=== PATIENT | male | born 1990 ===

== ENCOUNTER 2024-03-02 17:44 | Inpatient (IN) | payer MEDICARE, MEDICAID ==
[2024-03-02] MEDS ORDERED: ACETAMINOPHEN TAB 325 MG TAB PO PRN (19:37)
[2024-03-02] MEDS ORDERED: MAGNESIUM HYDROXIDE 2,400 MG/30 ML CUP PO PRN (19:37)
[2024-03-02] MEDS ORDERED: OLANZapine 10 MG VIAL IM PRN (19:39)
[2024-03-03] MEDS: MELATONIN 3 MG TABLET PO SCH (02:52)
--- NOTE | 2024-03-03 04:58 | P.CONS ---
History of Present Illness - Reason for Consult Consult date: 03/03/24 - History of Present Illness The patient is a 34-year-old male with a PMH of anxiety who was transferred from [facility] where the patient had presented for suicidal ideation and anxiety. The patient had no active physical complaints at the time of interview. He denies experiencing chest discomfort, shortness of breath, fever, chills, cough, nausea, vomiting, abdominal pain, diarrhea. Denies tobacco, illicit substance, or alcohol use. Review of systems: Pertinent positives and negatives as discussed in HPI, a complete review of systems was performed and all other systems are negative. Physical examination: General: non toxic, no distress, appears at stated age, normal weight Derm: no unusual rashes/lesions, no unusual ecchymoses, warm, dry Head: atraumatic, normocephalic, symmetric Eyes: EOMI, no lid lag, anicteric sclera ENT: Nose and ears atraumatic, no thrush, no pharyngeal erythema Neck: trachea midline, supple Mouth: no lip lesion, mucus membranes moist Cardiovascular: S1S2 reg, no murmur, no edema Lungs: CTA bilateral, no rhonchi, no rales , no accessory muscle use Abdominal: soft, nontender to palpation, no guarding Ext: no gross muscle atrophy, no contractures, Neuro: No gross focal neuro deficits noted Psych: Alert, oriented, appropriate affect Assessment: Borderline hyperkalemia Prerenal azotemia Depression and anxiety Imaging: None performed Data Review: Potassium 5.3 with BUN 22, CK 102, with urine toxicology negative Plan: Repeat BMP Defer management of depression and anxiety to primary psychiatry service Thank you for allowing us to participate in the care of this patient. We will follow peripherally. Do not hesitate to contact us with questions. Someone can be reached from the [facility] hospitalist group at all hours of the day at [phone]. Past Medical History Past Medical History: No Reported History History of Any Multi-Drug Resistant Organisms: None Reported Past Surgical History: No Surgical Hx Reported Smoking Status: Current every day smoker Medications and Allergies Allergies Allergy/AdvReac Type Severity Reaction Status Date / Time chlorpromazine Allergy Unknown Verified 03/02/24 18:33 [From Thorazine] clindamycin Allergy Unknown Verified 03/02/24 18:33 divalproex sodium Allergy Unknown Verified 03/02/24 18:33 [From Depakote] Fish Containing Products Allergy Unknown Verified 03/02/24 18:33 [Fish] fluphenazine [From Prolixin] Allergy Unknown Verified 03/02/24 18:33 haloperidol [From Haldol] Allergy Unknown Verified 03/02/24 18:33 morphine Allergy Unknown Verified 03/02/24 18:33 risperidone [From Risperdal] Allergy Unknown Verified 03/02/24 18:33 Physical Exam Vitals: Vital Signs Temp Pulse Resp BP Pulse Ox 03/03/24 00:28 96.9 F L 100 18 120/87 99 Intake and Output 03/02/24 03/02/24 03/03/24 14:59 22:59 06:59 Other: Weight 84 kg 84 kg Results CBC & Chem 7: 03/03/24 09:12 03/03/24 09:12
[2024-03-03] MEDS: FOLIC ACID 1 MG TAB PO SCH (08:52)
[2024-03-03] MEDS: clonazePAM 1 MG TAB PO PRN (08:52)
[2024-03-03] MEDS: NICOTINE 14MG/24HR PATCH TRANSDERM SCH (08:52)
[2024-03-03] MEDS: MULTIVITAMINS, THERA 1 EACH TAB PO SCH (08:52)
[2024-03-03] MEDS: THIAMINE 100 MG TAB PO SCH (08:52)
[2024-03-03 09:39] LABS: Basophils # (A) 0.1 k/uL (0-0.2); Basophils % (A) 1 %; Eosinophils # (A) 0.2 k/uL (0-0.7); Eosinophils % (A) 2 %; HCT 43.6 % (39.0-53.0); HGB 14.1 gm/dL (13.0-17.5); Lymphocytes % (A) 24 %; MCH 31.1 pg (25.0-35.0); MCHC 32.4 g/dL (31.0-37.0); MCV 95.8 fL (80.0-100.0); Mean Platelet Volume 7.4; Monocytes # (A) 0.6 k/uL (0-1.0); Monocytes % (A) 7 %; Neutrophils # (A) 5.2 k/uL (1.3-7.7); Neutrophils % (A) 64 %; Platelet Count 440 k/uL (150-450); RBC 4.55 m/uL (4.30-5.90); RDW 13.4 % (11.5-15.5); WBC 8.1 k/uL (3.8-10.6)
[2024-03-03 09:53] LABS: ALT 22 U/L (4-49); AST 33 U/L (17-59); African American GFR (CKD) >90 (>60 ml/min/1.73 sqM); Albumin 4.7 g/dL (3.5-5.0); Alkaline Phosphatase 82 U/L (38-126); Anion Gap 9 mmol/L; Blood Urea Nitrogen 22 mg/dL (9-20); Calcium 9.8 mg/dL (8.4-10.2); Carbon Dioxide 23 mmol/L (22-30); Chloride 106 mmol/L (98-107); Glucose 87 mg/dL (74-99); Non-African American GFR(CKD) >90 (>60 ml/min/1.73 sqM); Potassium 5.3 mmol/L (3.5-5.1); Sodium 138 mmol/L (137-145); Total Bilirubin 0.6 mg/dL (0.2-1.3)
[2024-03-03] MEDS: IBUPROFEN 600 MG TAB PO PRN (09:57)
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
[2024-03-03] MEDS: QUEtiapine 25 MG TAB PO SCH (12:27)
[2024-03-03] MEDS: clonazePAM 1 MG TAB PO SCH (16:06)
[2024-03-03] MEDS ORDERED: LORazepam 2 MG/ML INJ IV PRN (19:48)
[2024-03-03] MEDS: QUEtiapine 50 MG TAB PO SCH (20:05)
[2024-03-03] MEDS: chlordiazePOXIDE 25 MG CAP PO SCH (20:05)
[2024-03-03 20:48] LABS: Amphetamine Screen,Urine Not Detected (NotDetected); Barbiturate Screen,Urine Not Detected (NotDetected); Benzodiazepines Screen,Urine Not Detected (NotDetected); Cocaine Screen,Urine Not Detected (NotDetected); Methadone Screen, Urine Not Detected (NotDetected); Opiate Screen,Urine Not Detected (NotDetected); Oxycodone Screen, Urine Not Detected (NotDetected); Phencyclidine Screen,Urine Not Detected (NotDetected); Tricyclic Antidepressant,Urine Not Detected (NotDetected); Urn Cannabinoid Scrn Not Detected (NotDetected)
[2024-03-03] MEDS ORDERED: clonazePAM 1 MG TAB PO SCH (21:00)
[2024-03-04] MEDS: QUEtiapine 25 MG TAB PO STA (10:50)
[2024-03-04] MEDS: OLANZapine 5 MG TAB PO PRN (10:50)
[2024-03-04] MEDS: SERTRALINE 50 MG TAB PO SCH (10:50)
--- NOTE | 2024-03-04 11:14 | P.PN ---
Progress Note - Text Progress Note Date: 03/04/24 Interval History: Patient was seen wandering the hallways and was directable and agreeable to speak with blurb writer in the office. The patient states that he had problems sleeping last night. He complains of hot and cold flashes during the night and restlessness. He also claims he has loose stools. He mentions that his mood and anxiety is mildly improving. He is still endorsing auditory hallucinations, however, they are getting better. He claims his appetite is improving. At this time patient denies any suicidal or homicidal ideations, intent or plan. Patient denies any visual hallucinations and denies any paranoia or delusions. Patient denies any side effects from the medications and has been compliant with meds. MENTAL STATUS EXAM: General Appearance: Patient appears to be stated age is alert, directable, and attempts to cooperate. Patient appears to have [poor] hygiene and grooming. Unshaven, dressed casually, multiple tattoos. Behavior: Patient is seated without any agitated behavior. Speech: Patient's speech is fluent and nonpressured. Mood/Affect: Patient reports their mood is a little better, affect is congruent and constricted. Suicidality/Homicidality: Patient denies having any homicidal ideation intent or plan. [Denies any suicidal ideations intent or plan] Perceptions: Patient denies any visual hallucinations and endorses auditory hallucinations Though content/process: There is no evidence of any delusional thought content and thought process is linear Memory and concentration: AOX3, grossly intact for the purposes of this session. Judgment and insight: poor IMPRESSIONS: Schizoaffective disorder, depressive type Alcohol use disorder Intellectual disability PTSD PLAN: -Patient is admitted under [voluntary] status to MHU for stabilization of psychiatric symptoms and safety. Patient has signed [adult voluntary form and] [medication consent] and is placed in patient's chart. -Medications : increase Seroquel 50mg daily +100mg qhs for mood stabilization. Klonopin 1mg at 0900 and 1700 for anxiety, Melatonin 3mg po qhs for sleep add Zoloft 50mg daily for mood/anxiety Decrease Librium 20 tid for withdraw, with plan to taper down to 10mg TID tomorrow, 03/05 and contuing taper off -Ativan [and Haldol] PRN for agitation/aggression -thiamine, MVM for etoh use -CIWA protocol with Ativan PRN for ETOH withdrawal -NRT - nicotine patch -SW on board for discharge planning. Encourage patient to participate in groups to work on coping skills.
[2024-03-04] MEDS ORDERED: OLANZapine 10 MG VIAL IM PRN (12:15)
[2024-03-04] MEDS: OLANZapine 5 MG TAB PO STA (12:27)
[2024-03-04] MEDS: LORazepam 1 MG TAB PO PRN (19:40)
[2024-03-04] MEDS: QUEtiapine 100 MG TAB PO SCH (20:24)
[2024-03-04] MEDS: MELATONIN 3 MG TABLET PO SCH (20:24)
[2024-03-05] MEDS: QUEtiapine 50 MG TAB PO SCH (08:38)
[2024-03-05] MEDS: MAG HYDROX/AL HYDROX/SIMETH 355 ML BOTTLE PO PRN (10:06)
[2024-03-05] MEDS: diphenhydrAMINE 50 MG/ML 1 ML VIAL IM STA (14:57)
[2024-03-05] MEDS: OLANZapine 10 MG TAB PO PRN (14:58)
--- NOTE | 2024-03-05 16:17 | P.PN ---
Progress Note - Text Interval History: Patient was seen wandering the hallways and was directable and agreeable to speak with travel writer. Reports withdrawal symptoms: diarrhea and hot flashes. Also reports paranoia and anxiety. At this time patient denies any suicidal or homicidal ideations, intent or plan. Patient denies any side effects from the medications and has been compliant with meds. Requesting increase in seroquel to help with sleep and paranoia. MENTAL STATUS EXAM: General Appearance: Patient appears to be stated age is alert, directable, and attempts to cooperate. Patient appears to have [poor] hygiene and grooming. Unshaven, dressed casually, multiple tattoos. Behavior: Patient is seated without any agitated behavior. Speech: Patient's speech is fluent and nonpressured. Mood/Affect: Patient reports their mood is a little better, affect is congruent and constricted. Suicidality/Homicidality: Patient denies having any homicidal ideation intent or plan. [Denies any suicidal ideations intent or plan] Perceptions: Patient denies any visual hallucinations and endorses auditory hallucinations Though content/process: + paranoia Memory and concentration: AOX3, grossly intact for the purposes of this session. Judgment and insight: poor IMPRESSIONS: Schizoaffective disorder, depressive type Alcohol use disorder Intellectual disability PTSD PLAN: Increase seroquel to 50 mg daily 200 mg qhs, zoloft to 100 mg daily, continue other meds
[2024-03-05] MEDS: QUEtiapine 200 MG TAB PO SCH (20:28)
[2024-03-06] MEDS: SERTRALINE 100 MG TAB PO SCH (08:35)
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
[2024-03-06] MEDS: QUEtiapine 100 MG TAB PO SCH (20:11)
[2024-03-07] MEDS: QUEtiapine 100 MG TAB PO SCH (07:44)
--- NOTE | 2024-03-07 10:07 | P.PN ---
Progress Note - Text Progress Note Date: 03/07/24 Interval History: Patient was seen wandering the hallways and was directable and agreeable to speak with fiction and nonfiction prose writer in the office. The patient states that he is feeling quite a bit better today. He claims to have gotten some good sleep the past couple nights. He claims his appetite is vastly improved. He is no longer endorsing any auditory hallucinations. He states that he is going to a couple groups. he is more future oriented today. At this time patient denies any suicidal or homicidal ideations, intent or plan. Patient denies any visual hallucinations and denies any paranoia or delusions. Patient denies any side effects from the medications and has been compliant with meds. MENTAL STATUS EXAM: General Appearance: Patient appears to be stated age is alert, directable, and attempts to cooperate. Patient appears to have improved hygiene and grooming. Unshaven, dressed casually, multiple tattoos. Behavior: Patient is seated without any agitated behavior. more cooperative. Speech: Patient's speech is fluent and nonpressured. Mood/Affect: Patient reports their mood is much better, affect is congruent and constricted. Suicidality/Homicidality: Patient denies having any homicidal ideation intent or plan. [Denies any suicidal ideations intent or plan] Perceptions: Patient denies any visual hallucinations and denies auditory hallucinations Though content/process: There is no evidence of any delusional thought content and thought process is linear Memory and concentration: AOX3, grossly intact for the purposes of this session. Judgment and insight: improving IMPRESSIONS: Schizoaffective disorder, depressive type Alcohol use disorder Intellectual disability PTSD PLAN: -Patient is admitted under voluntary status to MHU for stabilization of psychiatric symptoms and safety. Patient has signed adult voluntary form and medication consent and is placed in patient's chart. -Medications : Zoloft 100mg daily for mood/anxiety, Seroquel 100mg daily +300mg qhs for mood stabilization. Klonopin 1mg at 0900 and 1700 for anxiety, Melatonin 6mg po qhs for sleep add Zoloft 50mg daily for mood/anxiety , decrease Librium 10 bid for withdraw, last dose tomorrow, 03/08 -Ativan [and Haldol] PRN for agitation/aggression -thiamine, MVM for etoh use -CIWA protocol with Ativan PRN for ETOH withdrawal -NRT - nicotine patch -SW on board for discharge planning. Encourage patient to participate in groups to work on coping skills. Likely discharge tomorrow if patient continues to improve, back to care home in [facility].
[2024-03-08 07:21] VITALS: BP 119/78; PULSE 105; RESP 16; TEMP 98.1
--- NOTE | 2024-03-08 10:05 | P.DS ---
Providers Date of admission: 03/03/24 00:20 Expected date of discharge: 03/08/24 Attending physician: Ed Card MD Consults: 03/02/24 19:37 Consult Physician Routine Consulting Provider: [facility] Consult Reason/Comments: H&P Do you want consulting provider notified?: Yes Primary care physician: Stated None - Discharge Diagnosis(es) (1) Schizoaffective disorder, depressive type Current Visit: Yes Status: Acute Priority: High (2) Alcohol use disorder Current Visit: Yes Status: Acute Priority: Medium (3) Intellectual disability Current Visit: Yes Status: Acute Priority: Medium (4) PTSD (post-traumatic stress disorder) Current Visit: Yes Status: Acute Priority: Medium Hospital Course: Admission HPI: Admission note was completed by bond underwriter "Patient presented to the hospital as a transfer from [facility]. As per EPS note, "Pt is a transfer from [facility]. Pt is SI with no plan. Increased depression. Hopeless, helpless. Decreased motivation. Poor ADLs, poor insight, judgement. No med hx reported. ETOH daily use, 1/5 daily use. Denies hx of WD seizures. Substance use. Pt attempted SI 7 years ago via Overdose by xanax. Pt was at [place] Sep 2023. Covid negative. 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 VSS. ETOH level 84. UDS negative. Last CIWA was 0 on 03/01. ROMÁN Onofre from [facility] called and gave report: Denies any behavioral issues, CIWA 0, VSS, no restraints, no prns. Pt told [place] that he only drinks a few beers daily but it is documented that he drinks 1/5 daily. Start CIWA q6h to monitor pt." according to the HPI from [facility] the patient came to the ER for anxiety and insomnia. The patient had stated that he left the custodial, and has been walking on the street for a couple of weeks. He also claims to not have taken his medications Klonopin and Zyprexa, and feels depressed, suicidal, and anxious. He states he started drinking again, 1/5 daily. He states he does not know how to deal with people. Upon today's interview, he states he was having suicidal thoughts, and auditory hallucination. He was having severe anxiety. He states the voices in his head was scaring him from going home. They were telling him that the custodial was out to get him. He states that his mental state was scaring him. He has been having severe panic attacks recently. Patient states that he is still hearing voices, he states the voices are talking back to him. He states that he is despaired to live. He states he went 6 days prior to the hospitalization without sleep, and his appetite is poor. Patient denies any suicidal or homicidal ideations intent or plan. At this time patient denies any visual hallucinations. Patient denies any flight of ideas racing thoughts and increased in goal directed behavior. Patient admits to using alcoh ol and cigarettes." Hospital course: Upon admission to the unit patient was directable and agreeable to commence treatment and signed adult voluntary form. Patient got along well with other patients on the unit and followed unit protocol. Patient was compliant with the medications and denied any side effects throughout hospital course. Patient was started on Zoloft increased to dose of 100 mg daily for mood/anxiety, Seroquel 100 mg daily +200 mg nightly for mood stabilization/psychosis/insomnia, patient was continued at his home dose of Klonopin 1 mg at 9 AM and 5 PM for anxiety, melatonin 6 mg nightly for sleep, Librium was started and gradually tapered off for alcohol withdrawal. Patient spoke of his stressors and engaged in therapy both group and individual. Patient was also seen by medical team for history and physical exam. Throughout the course of the hospitalization patient gradually improved with regards to mood, anxiety, psychosis, suicidal thoughts, sleep and became more future oriented with improved insight and judgment. On the day of discharge patient denied any suicidal or homicidal ideations intent or plan denied any auditory or visual hallucinations. Patient endorsed wanting to live for his health, future and family. The patient denied any access to guns or weapons. Patient denied any paranoia and did not endorse any delusions. Patient does have a significant history of substance abuse and was counseled on abstaining from all substances including alcohol and marijuana. Patient was offered however declined inpatient substance-abuse rehab. Patient elected to do outpatient substance use treatment program through [facility]. Patient was also counseled on the medications and need for regular compliance and was encouraged to follow-up with their outpatient appointment for mental health and also for primary care. Patient currently lives in a room and board in [facility] and will be heading back home upon discharge. Mental status exam: General Appearance: Patient appears to be tall, several tattoos, stated age is alert, pleasant, and cooperative. Patient is in no acute distress and has improved hygiene and grooming Behavior: Patient is calmly seated without any agitated behavior. Speech: Patient's speech is fluent and nonpressured. Mood/Affect: Patient reports their mood is "better", affect is congruent and euthymic. Suicidality/Homicidality: Patient denies having any suicidal or homicidal ideation intent or plan. Perceptions: Patient denies any auditory or visual hallucinations. Though content/process: There is no evidence of any delusional thought content and thought process is linear and goal-directed. More future oriented Memory and concentration: AOX3, grossly intact for the purposes of this session. Can spell "WORLD" backwards correctly. Judgment and insight: Chronically poor, however has improved with guarded prognosis Impression: Schizoaffective disorder, depressive type Alcohol use disorder Intellectual disability PTSD Plan: -Continue with discharge today as patient has improved and stabilized psychiatrically and is not currently an imminent threat to himself and/or others. Patient will remain at chronically elevated risk for harm to self and/or others due to his impulsivity and polysubstance abuse. -Continue medications: Zoloft 100 mg daily for mood/anxiety, Seroquel 100 mg daily +300 mg nightly for mood stabilization/insomnia/psychosis, melatonin 6 mg nightly for sleep. -Patient was counseled on the need for medication compliance and appropriate follow-up at mental health and also primary care for medical issues. Patient verbalized understanding and agreed. -Social work to help coordinate patient's discharge today back to his room and board in [facility]. Social work also to arrange for patients follow up appointments with [facility] for psychiatric care along with follow up with primary care provider. -Patient counseled on abstaining from recreational drugs and marijuana and alcohol. Was informed/educated on the adverse effects on their physical and mental health. Patient verbally agreed and understood. Patient was offered substance abuse treatment however declined at this time. -Patient was instructed to return to the hospital or seek immediate medical care if their psychiatric or medical symptoms do worsen or reoccur. Allergies Allergy/AdvReac Type Severity Reaction Status Date / Time chlorpromazine Allergy Unknown Verified 03/02/24 18:33 From Thorazine clindamycin Allergy Unknown Verified 03/02/24 18:33 divalproex sodium Allergy Unknown Verified 03/02/24 18:33 From Depakote Fish Containing Products Allergy Unknown Verified 03/02/24 18:33 Fish fluphenazine from Prolixin Allergy Unknown Verified 03/02/24 18:33 haloperidol from Haldol Allergy Unknown Verified 03/02/24 18:33 morphine Allergy Unknown Verified 03/02/24 18:33 risperidone from Risperdal Allergy Unknown Verified 03/02/24 18:33 Laboratory Results WBC 8.1 k/uL (3.8-10.6) 03/03/24 09:12 RBC 4.55 m/uL (4.30-5.90) 03/03/24 09:12 Hgb 14.1 gm/dL (13.0-17.5) 03/03/24 09:12 Hct 43.6 % (39.0-53.0) 03/03/24 09:12 MCV 95.8 fL (80.0-100.0) 03/03/24 09:12 MCH 31.1 pg (25.0-35.0) 03/03/24 09:12 MCHC 32.4 g/dL (31.0-37.0) 03/03/24 09:12 RDW 13.4 % (11.5-15.5) 03/03/24 09:12 Plt Count 440 k/uL (150-450) 03/03/24 09:12 MPV 7.4 03/03/24 09:12 Neutrophils % 64 % 03/03/24 09:12 Lymphocytes % 24 % 03/03/24 09:12 Monocytes % 7 % 03/03/24 09:12 Eosinophils % 2 % 03/03/24 09:12 Basophils % 1 % 03/03/24 09:12 Neutrophils # 5.2 k/uL (1.3-7.7) 03/03/24 09:12 Lymphocytes # 2.0 k/uL (1.0-4.8) 03/03/24 09:12 Monocytes # 0.6 k/uL (0-1.0) 03/03/24 09:12 Eosinophils # 0.2 k/uL (0-0.7) 03/03/24 09:12 Basophils # 0.1 k/uL (0-0.2) 03/03/24 09:12 Sodium 138 mmol/L (137-145) 03/03/24 09:12 Potassium 5.3 mmol/L (3.5-5.1) H 03/03/24 09:12 Chloride 106 mmol/L (98-107) 03/03/24 09:12 Carbon Dioxide 23 mmol/L (22-30) 03/03/24 09:12 Anion Gap 9 mmol/L 03/03/24 09:12 BUN 22 mg/dL (9-20) H 03/03/24 09:12 Creatinine 0.74 mg/dL (0.66-1.25) 03/03/24 09:12 Est GFR (CKD-EPI)AfAm >90 (>60 ml/min/1.73 sqM) 03/03/24 09:12 Est GFR (CKD-EPI)NonAf >90 (>60 ml/min/1.73 sqM) 03/03/24 09:12 Glucose 87 mg/dL (74-99) 03/03/24 09:[address] Glu mg/dL 103 mg/dL 03/03/24 09:12 Hemoglobin A1c 5.2 % (<=6.0) 03/03/24 09:12 Calcium 9.8 mg/dL (8.4-10.2) 03/03/24 09:12 Total Bilirubin 0.6 mg/dL (0.2-1.3) 03/03/24 09:12 AST 33 U/L (17-59) 03/03/24 09:12 ALT 22 U/L (4-49) 03/03/24 09:12 Alkaline Phosphatase 82 U/L (38-126) 03/03/24 09:12 Creatine Kinase 102 U/L (55-170) 03/03/24 09:12 Total Protein 8.0 g/dL (6.3-8.2) 03/03/24 09:12 Albumin 4.7 g/dL (3.5-5.0) 03/03/24 09:12 TSH 3.940 mIU/L (0.465-4.680) 03/03/24 09:12 Urine Opiates Screen Not Detected (NotDetected) 03/03/24 20:10 Ur Oxycodone Screen Not Detected (NotDetected) 03/03/24 20:10 Urine Methadone Screen Not Detected (NotDetected) 03/03/24 20:10 Ur Barbiturates Screen Not Detected (NotDetected) 03/03/24 20:10 U Tricyclic Antidepress Not Detected (NotDetected) 03/03/24 20:10 Ur Phencyclidine Scrn Not Detected (NotDetected) 03/03/24 20:10 Ur Amphetamines Screen Not Detected (NotDetected) 03/03/24 20:10 U Methamphetamines Scrn Not Detected (NotDetected) 03/03/24 20:10 U Benzodiazepines Scrn Not Detected (NotDetected) 03/03/24 20:10 Urine Cocaine Screen Not Detected (NotDetected) 03/03/24 20:10 U Marijuana (THC) Screen Not Detected (NotDetected) 03/03/24 20:10 Vital Signs Temp 98.1 F 03/08/24 06:46 Pulse 105 H 03/08/24 06:46 Resp 16 03/08/24 06:46 BP 119/78 03/08/24 06:46 Pulse Ox 98 03/08/24 06:46 FiO2 Patient Condition at Discharge: Stable Plan - Discharge Summary Discharge Rx Participant: No New Discharge Prescriptions: New Nicotine 14Mg/24Hr Patch [Habitrol] 1 patch TRANSDERM DAILY 14 Days #14 patch clonazePAM [KlonoPIN] 1 mg PO 0900,1700 10 Days #20 tab Thiamine [Vitamin B-1] 100 mg PO DAILY tab Folic Acid 1 mg PO DAILY tab Melatonin 6 mg PO HS 30 Days #60 tab Multivitamins, Thera [Multivitamin (formulary)] 1 each PO DAILY tab QUEtiapine [SEROquel] 100 mg PO DAILY 30 Days #30 tab QUEtiapine FUMARATE [SEROquel] 300 mg PO HS 30 Days #30 tablet Sertraline [Zoloft] 100 mg PO DAILY 30 Days #30 tab Patient Instructions/Handouts: Seizure/Epilepsy Discharge Instructions & Follow-Up Activity/Diet/Wound Care/Special Instructions: Avoid the use of street drugs and alcohol. Take all medications as prescribed. When you are in need of refills on your medications, please contact your outpatient medical provider and/or outpatient psychiatrist. Please go to your scheduled outpatient appointments for aftercare treatment. If symptoms return or become worse, call the crisis line at or and/or visit the nearest emergency room for assistance. National Suicide and Crisis Lifeline - call or text 988. Discharge Disposition: HOME SELF-CARE
== END 2024-03-08 14:02 | disposition home or self-care (01) | DRG 885 ==
LOC: 3MHU 03-03 00:20
PROVIDERS: ADMIT Psychiatry & Neurology Psychiatry; ATTEND Psychiatry & Neurology Psychiatry
DX: F25.1 Schizoaffective disorder, depressive type (principal); F10.139 Alcohol abuse with withdrawal, unspecified; R45.851 Suicidal ideations; E87.5 Hyperkalemia; F17.200 Nicotine dependence, unspecified, uncomplicated; F43.10 Post-traumatic stress disorder, unspecified; F79 Unspecified intellectual disabilities; G47.00 Insomnia, unspecified; Y90.4 Blood alcohol level of 80-99 mg/100 ml; Z79.899 Other long term (current) drug therapy; Z91.51 Personal history of suicidal behavior
CPT/HCPCS: 80053; 80306; 82550; 83036; 84443; 85025